=== PATIENT | male | born 1945 | race Caucasian/White ===

== ENCOUNTER → 2016-08-25 | Outpatient (CLI) | payer MEDICARE, BC ==
[~2016-08-25] MED LIST: DIOVAN HCT 1601 EAC1 PO; DULERA 200 MCG/13 GM IH; FLOMAX DPS0.4 MG PO; GLUCOSAMINE &1 EAC1 PO; LEVAQUIN500 MG PO; LIPITOR10 MG PO; MILK OF MAGNESI10 ML PO; SENOKOT S1 TAB PO
== END | disposition home or self-care (01) ==
LOC: RAD.S 13:30
DX: R60.0 Localized edema (principal); M79.604 Pain in right leg; R53.83 Other fatigue; I82.411 Acute embolism and thrombosis of right femoral vein; I82.441 Acute embolism and thrombosis of right tibial vein

== ENCOUNTER → 2016-09-06 | Outpatient (CLI) | payer MEDICARE, BC ==
--- NOTE | ~2016-09-06 | CST ---
Cardiac Perfusion Imaging Demographics Patient Name TRACEY Gipson Gender Male Patient Number [id number] Race Visit Number [id number] Ethnicity Corporate ID Room Number Accession Number [id number] Height 72 inches Date of 1945 Weight 247 pounds Age 70 year(s) BSA 2.33 m Referring Physician Bobby Johnson BMI 33.5 kg/m [facility] Date of study 09/06/2016 Physician Radiology Lida Benitez M.D. Supervising /LETITIAP Bobby Johnson MD NC Technologist Jose M Warren, [facility] Ordering Physician Bobby Johnson MD Stress Lea Jones nuclear fuel processing technician Stress ECG Reading Bobby Johnson MD Nurse [facility] Physician Sina Garcia The procedure was explained in detail to the patient. Risks, complications and alternative treatments were reviewed. Written consent was obtained. Medications Reviewed with Patient prior to Procedure. Procedure Procedure Type: Nuclear Stress Test:Pharmacological, Lexiscan Procedure Start time: 09/06/2016 07:00 Indications: Fatigue. Risk Factors The patient risk factors include:peripheral arterial disease, former tobacco use, treated hypercholesterolemia, treated hypertension and dyslipidemia. Conclusions Summary Perfusion Images: The overall quality of the study is good. Left ventricular cavity is noted to be normal on the stress and rest studies. There is no evidence of abnormal lung activity. The right ventricle is not visualized and cannot be assessed. Stress SPECT images demonstrate homogenous tracer distribution throughout the myocardium. Rest SPECT images demonstrate homogenous tracer distribution throughout the myocardium. Gated SPECT imaging reveals normal myocardial thickening and wall motion. The left ventricular ejection fraction was calculated to be 74%. Impression 1. Normal myocardial perfusion. 2. Normal left ventricular systolic function with an ejection fraction of 74%. Stress Protocols Resting ECG NSR Resting HR:95 bpm Resting BP:140/80 mmHg Stress Protocol:Pharmacologic Predicted HR: 150 bpm Test duration: 06:00 min Reason for termination:Infusion complete Symptoms none Complications Procedure complication: None. Stress Interpretation Appropriate hemodynamic response to Lexiscan. No significant ST-T wave changes with Lexiscan. ECG portion is negative for ischemia by diagnostic criteria. Imaging Results Summed scores - Summed stress score: 0 - Summed rest score: 0 - Summed difference score: 0 Stress ejection Ejection fraction:74 % EDV :73 ml ESV :19 ml Stroke volume :54 ml LV mass :94 gr Imaging Protocols Rest Stress Isotope:Tc99m Myoview IV Isotope: Tc99m Myoview IV Isotope dose:10.2 mCi Isotope dose:30.5 mCi Date:09/06/2016 06:34 Date:09/06/2016 08:01 Technique: SPECT Technique: Gated Supine SPECT Supine Scan Time:30 minutes post injection Scan Time:45-60 minutes post injection Procedure Medications - Regadenoson (Lexiscan) 0.4 mg IV over 10-15 sec. I.V. 0.4 mg. Medications administered per verbal order and read back to physician prior to administration. Medical History Admission Data Admission date: 09/06/2016 Admission Time: 06:23 Hospital Status: Outpatient. Signatures
--- NOTE | ~2016-09-06 | ECH ---
Transthoracic Echocardiography Report (TTE) Demographics Patient Name SENG WEBB Date of Study 09/06/2016 R Patient Number [id number] Visit Number [id number] Date of 1945 Room Number Accession Number [id number] Gender Male Age 70 year(s) Referring Bobby Johnson Central Sterile Technician Fani Fajardo [facility] Physician Physician Interpreting Jay Gipson Stripper Preliminary Physician Supervising Ordering Physician Bobby Johnson MD, MD/P Nurse Stress Sap Technical Architect Conclusions Summary Technically difficult exam. The estimated left ventricular ejection fraction is 60%. Moderate concentric left ventricular hypertrophy. Diastolic assessment reveals Grade I diastolic dysfunction. Procedure Type of Study TTE procedure:Echo Complete SF. Procedure Date Date: 09/06/2016 Start: 08:11 AM Technical Quality: Fair due to body habitus. Indications:Edema and Fatigue. Appropriate Use Criteria: 9 Height: 72 inches Weight: 247 pounds BSA: 2.33 m Rhythm: Within normal limits HR: 99 bpm BP: 140/80 mmHg M-Mode/2D Measurements LV Diastolic Dimension: 3.53 cm LV Systolic Dimension: 2.47 cm LV Septum Diastolic: 1.47 cm LV PW Diastolic: 1.43 cm AO Root Dimension: 2.39 cm Cardiac Output: 7.75 l/min LA Dimension: 3.35 cm Cardiac Index: 3.33 l/min*m RV Diastolic Dimension: 2.89 cm LA volume index: 17 ml/m LVOT: 1.91 cm LVOT VTI: 27.33 cm LV Stroke volume: 78.27 ml LV Stroke volume index: 33.59 ml/m Doppler Measurements AV Peak Velocity: 1.4 m/s MV Peak E-Wave: 0.65 m/s AV Peak Gradient: 7.84 mmHg MV Peak A-Wave: 0.94 m/s AV Mean Gradient: 4.7 mmHg MV E/A Ratio: 0.69 LVOT Peak Velocity: 1.51 m/s AV Area (Continuity):3.03 cm PV Peak Velocity: 1.15 m/s PV Peak Gradient: 5.28 mmHg E' Septal Velocity: 0.07 m/s A' Septal Velocity: 0.13 m/s E' Lateral Velocity: 0.12 m/s A' Lateral Velocity: 0.15 m/s RA Area: 11.88 cm Findings Left Ventricle The left ventricle is normal in size . Moderate concentric left ventricular hypertrophy. Diastolic assessment reveals Grade I diastolic dysfunction. Right Ventricle Normal right ventricle structure and function. Left Atrium Normal left atrial size. Right Atrium Normal right atrial size. Mitral Valve Normal mitral valve structure and function. Aortic Valve Normal aortic valve structure and function. Tricuspid Valve Normal tricuspid valve structure and function. Pulmonic Valve The pulmonic valve is not well visualized. Pericardial Effusion No evidence of pericardial effusion. Epicardial fat pad noted. Miscellaneous Visualized portions of the aortic root and ascending aorta appear normal in size. Pleural Effusion No evidence of pleural effusion. Contractility Score LV regional wall motion:(0-Non visualized 1-Normal 2-Hypokinesis 3-Akinesis 4-Dyskinesis 5-Aneurysm) Signature
== END | disposition home or self-care (01) ==
LOC: CARD 08-25 11:19
DX: M79.604 Pain in right leg (principal); R60.0 Localized edema; R53.83 Other fatigue; I51.7 Cardiomegaly